=== PATIENT | male | born 1985 | race Caucasian/White ===

== ENCOUNTER 2018-11-28 05:32 | Inpatient (IN) | payer OTHER ==
[2018-11-28] MEDS: CEFAZOLIN 2 GM/50 ML (PMX) 50 ML IVPB (06:00)
[2018-11-28] MEDS ORDERED: PROPOFOL 20 ML (06:57)
[2018-11-28] MEDS ORDERED: ROCURONIUM 50 MG INJ ×2 (06:57→07:28)
[2018-11-28] MEDS ORDERED: LIDOCAINE 2% (SDV) 5 ML INJ (06:57)
[2018-11-28] MEDS ORDERED: MEPERIDINE 100 MG INJ (06:57)
[2018-11-28] MEDS ORDERED: SUCCINYLCHOLINE CHLORIDE 100 MG/5 ML SYG IV (06:57)
[2018-11-28] MEDS ORDERED: GLYCOPYRROLATE 0.4 MG INJ ×3 (06:57→07:30)
[2018-11-28] MEDS ORDERED: NEOSTIGMINE 10 MG INJ (07:29)
[2018-11-28] MEDS ORDERED: LABETALOL HCL 20MG INJ (07:32)
[2018-11-28] MEDS: POLYMYXIN/BACITRACIN 1L IRRIG (07:55)
[2018-11-28] MEDS: BUPIVACAINE 0.25% (MPF) 30 ML INJ (07:55)
[2018-11-28] MEDS ORDERED: METOCLOPRAMIDE 10 MG INJ IV (09:30)
[2018-11-28] MEDS ORDERED: hydrALAzine 20 MG INJ IV (09:30)
[2018-11-28] MEDS ORDERED: FENTAnyl 50 MCG/ML VIAL IV ×2 (09:30)
[2018-11-28] MEDS ORDERED: HYDROmorphONE 1 MG/5 ML IV SYRINGE IV ×3 (09:30)
[2018-11-28] MEDS ORDERED: LABETALOL HCL 20MG INJ IV (09:30)
[2018-11-28] MEDS ORDERED: OXYCODONE/ACETAMINOPHEN (5/325) TAB PO ×2 (09:30→10:00)
[2018-11-28] MEDS ORDERED: MIDAZOLAM 1 MG/ML 2 ML INJ IV (09:30)
[2018-11-28] MEDS ORDERED: EPHEDrine SULFATE 50 MG/5 ML SYG IV (09:30)
[2018-11-28] MEDS ORDERED: DIPHENHYDRAMINE 50 MG INJ IV (09:30)
[2018-11-28] MEDS: ONDANSETRON 4 MG INJ IV (09:48)
[2018-11-28] MEDS: MEPERIDINE 25 MG INJ IV (09:49)
[2018-11-28] MEDS ORDERED: ONDANSETRON 4 MG INJ IV ×2 (10:00→15:30)
[2018-11-28] MEDS: FENTAnyl 50 MCG/ML VIAL IV (10:14)
[2018-11-28] MEDS: OXYCODONE/ACETAMINOPHEN (5/325) TAB PO ×3 (10:53→19:36)
[2018-11-28] MEDS ORDERED: PROCHLORPERAZINE 10 MG TAB PO (15:30)
[2018-11-28] MEDS ORDERED: NACL 0.9% 3 ML SYG IV (15:30)
[2018-11-28] MEDS ORDERED: ZOLPIDEM 5 MG TAB PO (15:30)
[2018-11-28] MEDS ORDERED: NALOXONE (0.4 MG/ML) INJ IV (15:30)
[2018-11-28] MEDS ORDERED: DIPHENHYDRAMINE 50 MG CAP PO (15:30)
[2018-11-28] MEDS ORDERED: DIAZEPAM 5 MG/ML SYG IM (15:30)
[2018-11-28] MEDS ORDERED: TRIMETHOBENZAMIDE 100 MG/ML VIAL IM (15:30)
[2018-11-28] MEDS ORDERED: BETHANECHOL 25 MG TAB PO (15:30)
[2018-11-28] MEDS: ACETAMINOPHEN 325 MG TAB PO (18:17)
[2018-11-28] MEDS: DIAZEPAM 5 MG TAB PO (18:18)
[2018-11-28] MEDS: CEFAZOLIN 1 GM/50 ML (PMX) 50 ML IVPB (18:18)
[2018-11-28] MEDS: DEXTROSE 5%-0.45% NACL 1,000 ML IV (18:24)
[2018-11-28] MEDS: oxyCODONE 5 MG TAB PO (20:10)
[2018-11-28] MEDS: RANITIDINE 150 MG TAB PO (21:00)
[2018-11-29] MEDS: oxyCODONE 5 MG TAB PO ×5 (00:01→20:18)
[2018-11-29] MEDS: CEFAZOLIN 1 GM/50 ML (PMX) 50 ML IVPB ×3 (00:03→12:29)
[2018-11-29] MEDS: DEXTROSE 5%-0.45% NACL 1,000 ML IV ×3 (01:15→21:15)
[2018-11-29 05:14] LABS: HEMATOCRIT 43.4 % (42.0-52.0); HEMOGLOBIN 14.5 g/dl (14.0-18.0)
[2018-11-29 05:32] LABS: ANION GAP 9 (5-13); BLOOD UREA NITROGEN 8 mg/dl (7-20); CALCIUM 9.1 mg/dl (8.4-10.2); CARBON DIOXIDE 29 mmol/L (21-31); CHLORIDE 102 mmol/L (97-110); CREATININE 0.86 mg/dl (0.61-1.24); Estimated GFR > 60 mL/min (>60); GLUCOSE 130 mg/dl (70-220); POTASSIUM 3.9 mmol/L (3.5-5.1); SODIUM 140 mmol/L (135-144)
[2018-11-29] MEDS ORDERED: BETHANECHOL 25 MG TAB PO (08:00)
[2018-11-29] MEDS: RANITIDINE 150 MG TAB PO ×2 (08:05→20:18)
[2018-11-29] MEDS: ASCORBIC ACID 500 MG TAB PO ×2 (08:05→20:18)
[2018-11-29] MEDS: DOCUSATE SODIUM 100 MG CAP PO ×2 (08:05→20:18)
[2018-11-29] MEDS: FERROUS SULFATE (EC) 325 MG TAB PO ×3 (08:05→20:18)
[2018-11-30] MEDS: oxyCODONE 5 MG TAB PO ×3 (02:25→11:41)
[2018-11-30 07:03] LABS: ADD UMIC NO; UR ASCORBIC ACID 40 mg/dL (NEGATIVE); UR BILIRUBIN (Dip) NEGATIVE (NEGATIVE); UR BLOOD (Dip) NEGATIVE (NEGATIVE); UR CLARITY CLEAR (CLEAR); UR COLOR YELLOW (YELLOW); UR GLUCOSE (Dip) NEGATIVE (NEGATIVE); UR KETONES (Dip) NEGATIVE (NEGATIVE); UR LEUKOCYTE ESTERASE (Dip) NEGATIVE Leu/ul (NEGATIVE); UR NITRITE (Dip) NEGATIVE (NEGATIVE); UR SPECIFIC GRAVITY (Dip) 1.015 (1.003-1.030); UR TOTAL PROTEIN (Dip) NEGATIVE (NEGATIVE); UR UROBILINOGEN (Dip) NEGATIVE (NEGATIVE)
[2018-11-30] MEDS: DEXTROSE 5%-0.45% NACL 1,000 ML IV (07:15)
[2018-11-30] MEDS: ASCORBIC ACID 500 MG TAB PO (08:32)
[2018-11-30] MEDS: AL HYDROX/MG HYDROX/SIMETH 30 ML CUP PO (08:32)
[2018-11-30] MEDS: FERROUS SULFATE (EC) 325 MG TAB PO ×2 (08:32→13:00)
[2018-11-30] MEDS: RANITIDINE 150 MG TAB PO (08:32)
[2018-11-30] MEDS: DOCUSATE SODIUM 100 MG CAP PO ×2 (08:32→13:00)
[2018-11-30] MEDS: BISACODYL 10 MG SUPP PR (10:23)
[2018-11-30] MEDS: CEPASTAT LOZENGE MT (11:34)
[2018-11-30] MEDS: NA PHOSPHATE/BIPHOS 133 ML ENEMA PR (11:35)
== END 2018-11-30 14:51 | disposition home or self-care (01) | DRG 520 ==
LOC: REC 05:32 → MS1 18:15
PROC: 0SB20ZZ Excision of Lumbar Vertebral Disc, Open Approach (ICD-10-PCS; principal; 2018-11-28 07:00)
DX: M51.26 Other intervertebral disc displacement, lumbar region (principal)
CPT/HCPCS: 72020; 80048; 81003; 85014; 85018; 86850; 86900; 86901; 86920; 88304; 97116; 97161; 97530